=== PATIENT | female | born 1965 | race Two or more races ===

== ENCOUNTER 2018-11-21 18:20 | Emergency (ER) | payer OTHER ==
--- NOTE | 2018-11-21 19:21 | EDM.PDOC ---
<Xiomara Shen - Last Filed: 11/22/18 11:21> ED HPI GENERAL MEDICAL PROBLEM - General Chief Complaint: Respiratory Problem Stated Complaint: LUNG COMPLAINT, SENT BY DOCTOR Time Seen by Provider: 11/21/18 19:20 Source of Information: Reports: Patient, Old Records, Provider History Limitations: Reports: Language Barrier - History of Present Illness INITIAL COMMENTS - FREE TEXT/NARRATIVE: 52-year-old female is sent over for evaluation and treatment of shortness breath. patient does not speak much Hebrew. Reportedly she has been seen primary care provider for shortness of breath. She reports several episodes of sharp chest pains. She had a d-dimer done the end month and this was found to be slightly elevated. Had abnormal PFTs today and was instructed to come to the ER. This time she is denying any shortness of breath, chest pain. states that she does feel fatigues, weak and dizzy at times. No syncope, nausea or vomiting. Patient was seen by myself one month ago and have legionella pneumonia. Treated with azithromycin. - Related Data Allergies Allergy/AdvReac Type Severity Reaction Status Date / Time No Known Allergies Allergy Verified 11/21/18 18:35 Home Meds: Home Meds Albuterol [Ventolin HFA] 18 gm .XX Q4H PRN #1 inhaler 11/21/18 [Rx] ED ROS GENERAL - Review of Systems Review Of Systems: See Below Constitutional: Reports: Chills (ocassional), Weakness, Fatigue. Denies: Fever (x 1 day since d/c) Respiratory: Denies: Shortness of Breath (none currently) Cardiovascular: Denies: Chest Pain (occassional, none currently ) GI/Abdominal: Denies: Nausea, Vomiting Neurological: Reports: Headache ED EXAM, GENERAL - Physical Exam Exam: See Below Exam Limited By: Language Barrier General Appearance: Alert, WD/WN, No Apparent Distress Eye Exam: Bilateral Eye: Normal Inspection Nose: Normal Inspection Throat/Mouth: Normal Inspection, Normal Lips, Normal Voice, No Airway Compromise Respiratory/Chest: No Respiratory Distress, Lungs Clear, Normal Breath Sounds Cardiovascular: Normal Peripheral Pulses, Regular Rate, Rhythm, No Murmur Neurological: Alert, Oriented, Normal Cognition Psychiatric: Normal Affect, Normal Mood Skin Exam: Warm, Dry, Normal Color Course - Vital Signs Last Recorded V/S: Last Vital Signs Temp 36.9 C 11/21/18 18:36 Pulse 85 11/21/18 18:36 Resp 16 11/21/18 18:36 BP 128/80 11/21/18 18:36 Pulse Ox 97 11/21/18 18:36 - Orders/Labs/Meds Meds: Medications Discontinued Medications Generic Name Dose Route Start Last Admin Trade Name Freq PRN Reason Stop Dose Admin Sodium Chloride 100 mls @ 60 mls/hr 11/21/18 20:15 11/21/18 20:18 Normal Saline IV 60 mls/hr ASDIRECTED HALIMA Administration Iopamidol 100 ml 11/21/18 20:06 11/21/18 20:18 Isovue-370 (76%) IVPUSH 11/21/18 20:07 100 ml ONETIME ONE Administration Sodium Chloride 10 ml 11/21/18 20:06 11/21/18 20:18 Saline Flush FLUSH 11/21/18 20:07 10 ml ONETIME ONE Administration - Radiology Interpretation Free Text/Narrative:: CT pulmonary angiogram impression per [facility]: there has been a cholecystectomy. there is no aortic dissection or aneurysm. there are no pulmonary emboli - Re-Assessments/Exams Free Text/Narrative Re-Assessment/Exam: 11/21/18 21:13 d dimer from 11/08 was 0.59. unlikely PE , more likely elevated from recent pneumonia. CT pulmonary angiogram done primarily to evaluate to ensure pneumonia had completely resolved as well as rule out PE. I reviewed the imaging with the patient. Will discharge home. Discharge instructions as documented. Departure - Departure Time of Disposition: 21:18 Disposition: Home, Self-Care 01 Condition: Good Clinical Impression: Shortness of breath - Discharge Information *PRESCRIPTION DRUG MONITORING PROGRAM REVIEWED*: No *COPY OF PRESCRIPTION DRUG MONITORING REPORT IN PATIENT PRISCILLA: No Prescriptions: Albuterol [Ventolin HFA] 18 gm .XX Q4H PRN #1 inhaler PRN Reason: Shortness Of Breath Instructions: Shortness of Breath, Adult, [id number] Referrals: Mariana Winslow MD [Primary Care Provider] - Forms: ED Department Discharge Additional Instructions: Albuterol 1 or 2 puffs every 4-6 hours as needed for shortness of breath. Follow-up in the clinic in one to 2 weeks for recheck of your symptoms. [id number] Tylenol Motrin as a for discomfort. Please return to the ER for symptoms change or worsen. <Efrain Connors Natasha - Last Filed: 11/23/18 13:21> ED HPI GENERAL MEDICAL PROBLEM Middle Chest Pain Score (Numeric/FACES): 3 Past Medical History HEENT History: Reports: Impaired Vision Cardiovascular History: Reports: None Respiratory History: Reports: None Gastrointestinal History: Reports: GERD Genitourinary History: Reports: UTI, Recurrent [employer] History: Reports: Musculoskeletal History: Reports: None Neurological History: Reports: None Psychiatric History: Reports: None Endocrine/Metabolic History: Reports: None Hematologic History: Reports: None Immunologic History: Reports: None Oncologic (Cancer) History: Reports: None Dermatologic History: Reports: None - Infectious Disease History Infectious Disease History: Reports: Chicken Pox - Past Surgical History Head Surgeries/Procedures: Reports: None HEENT Surgical History: Reports: Adenoidectomy, Tonsillectomy GI Surgical History: Reports: Cholecystectomy Female Surgical History: Reports: Section Social & Family History - Family History Family Medical History: Unobtainable - Tobacco Use Smoking Status *Q: Never Smoker - Caffeine Use Caffeine Use: Reports: Coffee - Recreational Drug Use Recreational Drug Use: No Course - Orders/Labs/Meds Meds: Medications Discontinued Medications Generic Name Dose Route Start Last Admin Trade Name Lavonne PRN Reason Stop Dose Admin Sodium Chloride 100 mls @ 60 mls/hr 11/21/18 20:15 11/21/18 20:18 Normal Saline IV 60 mls/hr ASDIRECTED HALIMA Administration Iopamidol 100 ml 11/21/18 20:06 11/21/18 20:18 Isovue-370 (76%) IVPUSH 11/21/18 20:07 100 ml ONETIME ONE Administration Sodium Chloride 10 ml 11/21/18 20:06 11/21/18 20:18 Saline Flush FLUSH 11/21/18 20:07 10 ml ONETIME ONE Administration
[2018-11-21] MEDS ORDERED: Iopamidol 755 Mg/ML 100 ML Bottle IVPUSH ONE (20:06)
[2018-11-21] MEDS ORDERED: Sodium Chloride 0.9% 10 ML Syringe FLUSH ONE (20:06)
[2018-11-21] MEDS ORDERED: Sodium Chloride 0.9% 100 ML IV SCH (20:15)
--- NOTE | 2018-11-22 06:40 | CT ---
CT chest Technique: Multiple axial sections were obtained from above the lung apices inferiorly through the lung bases. Intravenous contrast was utilized. Comparison: No prior chest imaging. Findings: Pulmonary arteries are well opacified. No filling defects are seen to indicate pulmonary embolism. Aorta shows no aneurysm or dissection. Mediastinum and hilar regions appear within normal limits. No pericardial thickening is seen. Visualized portions of the upper abdominal structures show surgical clips within the right upper abdomen. Lungs are clear with no acute parenchymal change. Bone window settings were reviewed which show no acute osseous abnormality. Impression: 1. No findings of pulmonary embolism. 2. Nothing acute is appreciated on CT study of the chest. Diagnostic code #1 I agree with preliminary report from [facility], finalized on 11/21/18, 9:36 PM Central Time
== END 2018-11-21 21:30 | disposition home or self-care (01) ==
LOC: JD.ED 18:20
DX: R06.02 Shortness of breath (principal); Z90.49 Acquired absence of other specified parts of digestive tract; Z98.890 Other specified postprocedural states
CPT/HCPCS: 71275; 99285; J7030; Q9967

== ENCOUNTER 2023-02-04 12:49 | Emergency (ER) | payer BC, OTHER ==
[2023-02-04] MEDS ORDERED: Sodium Chloride 0.9% 10 ML Syringe FLUSH PRN (13:08)
[2023-02-04 13:36] LABS: BASOPHILS PERCENT AUTO 0.2 % (0.0-1.0); EOSINOPHILS ABSOLUTE AUTO 0.1 K/mm3 (0.0-0.4); EOSINOPHILS PERCENT AUTO 0.7 % (0.0-6.0); HEMATOCRIT 45.2 % (37.0-47.0); HEMOGLOBIN 14.7 gm/dl (12.0-16.0); IMMATURE GRAN ABSOLUTE AUTO 0.06 K/mm3 (0.00-0.05); IMMATURE GRAN PERCENT AUTO 0.5 % (0.0-0.4); LYMPHOCYTES ABSOLUTE AUTO 1.4 K/mm3 (1.0-4.8); LYMPHOCYTES PERCENT AUTO 11.6 % (24.0-44.0); MEAN CORPUSCULAR HEMOGLOBIN 28.9 pg (28.0-32.0); MEAN CORPUSCULAR HGB CONC 32.5 g/dl (32.0-36.0); MEAN PLATELET VOLUME 9.4 fl (9.4-12.3); MONOCYTES ABSOLUTE AUTO 0.5 K/mm3 (0.0-0.8); MONOCYTES PERCENT AUTO 4.2 % (0.0-8.0); NEUTROPHILS ABSOLUTE AUTO 10.1 K/mm3 (1.8-7.7); NEUTROPHILS PERCENT AUTO 82.8 % (41.0-71.0); PLATELET COUNT,PLT 300 K/mm3 (150-400); RED BLOOD CELL COUNT 5.08 M/mm3 (4.10-5.30); WHITE BLOOD CELL COUNT,WBC 12.15 K/mm3 (3.9-11.3)
[2023-02-04] MEDS ORDERED: Ondansetron 4 MG/2 ML SDV IVPUSH ONE (13:52)
[2023-02-04] MEDS ORDERED: Naloxone 0.4 MG/ML SDV IVPUSH PRN ×2 (13:59→16:10)
[2023-02-04] MEDS ORDERED: HYDROmorphone 0.5 MG/0.5 ML Syringe IVPUSH ONE ×2 (13:59→16:10)
[2023-02-04] MEDS ORDERED: Lactated Ringers 1,000 ML IV SCH (14:00)
[2023-02-04 14:07] LABS: ALBUMIN 4.1 g/dl (3.4-5.0); BILIRUBIN TOTAL 0.6 mg/dL (0.2-1.0); BUN/CREATININE RATIO 28.6 (14-18); C-REACTIVE PROTEIN 1.5 mg/dL (<1.0); CALCIUM 9.4 mg/dL (8.5-10.1); CREATININE 0.7 mg/dL (0.55-1.02); EST CRCL DRUG DOSING (CG) 70.98 mL/min; PROTEIN TOTAL,TP 8.3 g/dl (6.4-8.2)
[2023-02-04 14:14] LABS: CORONAVIRUS COVID-19 NAA NEGATIVE (NEGATIVE); INFLUENZA A NAA NEGATIVE (NEGATIVE)
[2023-02-04] MEDS ORDERED: Iopamidol 612 MG/ML 100 ML Bottle IVPUSH ONE (14:29)
[2023-02-04 16:00] LABS: APPEARANCE,URINE CLEAR (Clear); BILIRUBIN,URINE NEGATIVE (Negative); COLOR,URINE YELLOW (Yellow); GLUCOSE,URINE NEGATIVE (Negative); KETONES,URINE NEGATIVE (Negative); LEUKOCYTE ESTERASE,URINE NEGATIVE (Negative); NITRITE,URINE NEGATIVE (Negative); OCCULT BLOOD,URINE TRACE-INTACT (Negative); PH,URINE 6.5 (5.0-8.0); PROTEIN,URINE NEGATIVE (Negative); UROBILINOGEN,URINE 0.2 (0.2-1.0)
[2023-02-04 16:08] LABS: RBC,URINE 0-5 /hpf (0-5)
[2023-02-04 16:09] LABS: BACTERIA,URINE FEW /hpf (FEW); EPITHELIAL CELLS,URINE 0-5 /hpf (0-5); MUCUS,URINE RARE /hpf (FEW); WBC,URINE 0-5 /hpf (0-5)
== END 2023-02-04 16:55 | disposition home or self-care (01) ==
LOC: JD.ED 12:49
DX: R10.13 Epigastric pain (principal); R11.2 Nausea with vomiting, unspecified; K21.9 Gastro-esophageal reflux disease without esophagitis; Z79.899 Other long term (current) drug therapy; Z90.49 Acquired absence of other specified parts of digestive tract; Z98.890 Other specified postprocedural states; Z20.822 Contact with and (suspected) exposure to COVID-19
CPT/HCPCS: 0240U; 36415; 74177; 80053; 81001; 83690; 85025; 86140; 96361; 96374; 96375; 96376; 99284; J1170; J2405; J3490; J7120; Q9967

== ENCOUNTER 2023-02-04 17:23 | Emergency (ER) | payer OTHER ==
[2023-02-04] MEDS ORDERED: Lactated Ringers 1,000 ML IV SCH ×2 (17:45→18:15)
[2023-02-04] MEDS ORDERED: Pantoprazole 40 MG Vial IVPUSH ONE (18:05)
[2023-02-04] MEDS ORDERED: HYDROmorphone 0.5 MG/0.5 ML Syringe IVPUSH ONE (18:06)
[2023-02-04] MEDS ORDERED: Ondansetron 4 MG/2 ML SDV IVPUSH ONE (18:06)
[2023-02-04] MEDS ORDERED: Naloxone 0.4 MG/ML SDV IVPUSH PRN (18:06)
[2023-02-04 18:23] LABS: ALBUMIN 3.7 g/dl (3.4-5.0); BILIRUBIN INDIRECT 0.6; BILIRUBIN TOTAL 0.7 mg/dL (0.2-1.0); PROTEIN TOTAL,TP 7.4 g/dl (6.4-8.2)
[2023-02-04 18:27] LABS: BILIRUBIN DIRECT 0.1 mg/dl (0.0-0.2)
[2023-02-04] MEDS ORDERED: Alum Hydrox/Mag Hydrox/Simeth 30 ML, Lidocaine 2% 15 ML PO ONE ×2 (18:30)
[2023-02-04 18:32] LABS: BASOPHILS PERCENT AUTO 0.2 % (0.0-1.0); EOSINOPHILS ABSOLUTE AUTO 0.1 K/mm3 (0.0-0.4); EOSINOPHILS PERCENT AUTO 0.8 % (0.0-6.0); HEMATOCRIT 42.1 % (37.0-47.0); HEMOGLOBIN 13.8 gm/dl (12.0-16.0); IMMATURE GRAN ABSOLUTE AUTO 0.04 K/mm3 (0.00-0.05); IMMATURE GRAN PERCENT AUTO 0.5 % (0.0-0.4); LYMPHOCYTES PERCENT AUTO 11.4 % (24.0-44.0); MEAN CORPUSCULAR HEMOGLOBIN 29.6 pg (28.0-32.0); MEAN CORPUSCULAR HGB CONC 32.8 g/dl (32.0-36.0); MEAN CORPUSCULAR VOLUME 90.3 fl (83.0-99.0); MEAN PLATELET VOLUME 9.8 fl (9.4-12.3); MONOCYTES ABSOLUTE AUTO 0.3 K/mm3 (0.0-0.8); MONOCYTES PERCENT AUTO 3.4 % (0.0-8.0); NEUTROPHILS ABSOLUTE AUTO 7.1 K/mm3 (1.8-7.7); NEUTROPHILS PERCENT AUTO 83.7 % (41.0-71.0); PLATELET COUNT,PLT 252 K/mm3 (150-400); RED BLOOD CELL COUNT 4.66 M/mm3 (4.10-5.30); WHITE BLOOD CELL COUNT,WBC 8.49 K/mm3 (3.9-11.3)
[2023-02-04] MEDS ORDERED: Dicyclomine 10 MG Cap PO ONE (19:37)
== END 2023-02-04 21:05 | disposition home or self-care (01) ==
LOC: JD.ED 17:23
DX: R10.13 Epigastric pain (principal); K21.9 Gastro-esophageal reflux disease without esophagitis; Z79.899 Other long term (current) drug therapy
CPT/HCPCS: 36415; 76705; 80076; 84484; 85025; 93005; 96361; 96374; 96375; 99284; A9270; C9113; J2405; J7120; 93010

== ENCOUNTER 2023-02-21 08:29 | Day surgery (SDC) | payer OTHER ==
[~2023-02-21 08:29] MED LIST: Lactated Ringers 1,000 ML IV SCH; Sodium Chloride 0.9% 10 ML Syringe FLUSH PRN; Sodium Chloride 0.9% 10 ML Syringe FLUSH SCH
[2023-02-21] MEDS ORDERED: fentaNYL 100 MCG/2 ML SDV ONE (09:27)
[2023-02-21] MEDS ORDERED: Propofol 200 MG/20 ML SDV ONE (09:27)
[2023-02-21] MEDS ORDERED: Lidocaine 1% 4 ML ONE (09:28)
== END 2023-02-21 10:55 | disposition home or self-care (01) ==
LOC: JD.SDS 08:29
PROVIDERS: ATTEND Specialist
DX: K29.50 Unspecified chronic gastritis without bleeding (principal); K29.80 Duodenitis without bleeding; K21.9 Gastro-esophageal reflux disease without esophagitis; Z90.49 Acquired absence of other specified parts of digestive tract; Z79.899 Other long term (current) drug therapy
CPT/HCPCS: 43239; J2704; J3010; J7120; 00731; J3490